=== PATIENT | female | born 1975 | race African-American/Black ===

== ENCOUNTER 2017-05-12 10:39 | Outpatient (CLI) | payer MEDICARE, MEDICAID ==
[2017-05-12 11:37] LABS: #Basophils 0.1 thou/uL (0.0-0.2); #Eosinphils 0.2 thou/uL (0.0-0.7); #Lymphocytes 2.2 thou/uL (1.20-3.40); #Monocytes 0.4 thou/uL (0.11-0.59); #Neutrophils 2.7 thou/uL (1.40-6.50); %Basophils 1.9 % (0.0-1.0); %Eosinophils 2.9 % (0.0-10.0); %Lymphocytes 39.5 % (21.0-51.0); %Monocytes 6.3 % (0.0-10.0); %Neutrophils 49.4 % (42.0-75.0); Hemoglobin 13.1 g/dL (12.0-16.0); Mean Corpuscular HGB CONC 32.3 g/dL (32.0-36.0); Mean Corpuscular Hemoglobin 26.5 pg (27.0-31.0); Mean Corpuscular Volume 81.9 fl (81.0-99.0); Mean Platelet Volume 6.1 fL (7.4-10.4); Platelet Count 305 thou/uL (130-400); RBC Distribution Width 14.8 % (11.5-14.5); Red Blood Cell (RBC) Count 4.94 mill/uL (4.20-5.40); White Blood Cell (WBC) Count 5.5 thou/uL (4.8-10.8)
[2017-05-12 11:41] LABS: ALT (SGPT) 14 U/L (8-55); AST (SGOT) 16 U/L (5-34); Alkaline Phosphatase 99 U/L (40-150); Anion Gap 13 mmol/L (10-20); BUN (Urea Nitrogen) 13 mg/dL (7.0-18.7); Bilirubin, Total 0.4 mg/dL (0.2-1.2); Calc. Creatinine Clearance 0 mL/min (70-130); Carbon Dioxide 26 mmol/L (22-29); Chloride 104 mmol/L (98-107); Cholesterol 182 mg/dl (< 200 Desired); Estimated GFR-MDRD 70; Globulin 2.7 g/dL (2.4-3.5); Glucose 92 mg/dL (70-105); HDL Cholesterol 45 mg/dL (>60 Neg Risk); LDL Cholesterol, Calculated 127 mg/dL; Potassium 4.9 mmol/L (3.5-5.1); Protein, Total 6.7 g/dL (6.0-8.3); Sodium 138 mmol/L (136-145); Triglycerides 52 mg/dL (Less than 150)
[2017-05-12 11:51] LABS: Hemoglobin A1c 5.6 % (4.0-6.0)
[2017-05-12 11:56] LABS: Thyroid Stimulating Hormone 2.1567 uIU/mL (0.35-4.94)
[2017-05-12 12:44] LABS: Free T4 (Free Thyroxine) 0.78 ng/dL (0.70-1.48)
== END 2017-05-12 10:40 | disposition home or self-care (01) ==
LOC: HPCALD 10:39
PROVIDERS: ATTEND Family Medicine
DX: E78.5 Hyperlipidemia, unspecified (principal); E11.9 Type 2 diabetes mellitus without complications; E03.9 Hypothyroidism, unspecified
CPT/HCPCS: 36415; 80053; 80061; 83036; 84439; 84443; 85025

== ENCOUNTER 2018-03-19 08:17 | Outpatient (CLI) | payer MEDICARE, MEDICAID ==
--- NOTE | 2018-03-19 10:10 | CT ---
CT BRAIN WITHOUT CONTRAST: Comparison: None. History: Persistent headaches. Patient had a seizure one month ago and fell and hit the back of her h ead. Technique: Multiple contiguous axial images were obtained in a CT of the brain without contrast. FINDINGS: The brain is normal in morphology and attenuation without focal lesions or confluent areas of infarct ion. There is no evidence of hydrocephalus, intracranial hemorrhage, or extraaxial fluid collection. The calvarium and overlying soft tissues are unremarkable. The visualized paranasal sinuses and masto id air cells are well aerated. IMPRESSION: No evidence of acute intracranial abnormality. POS: [facility]
== END 2018-03-19 08:18 | disposition home or self-care (01) ==
LOC: BURCT 08:17
PROVIDERS: ATTEND Family Medicine
DX: R51 Headache (principal)
CPT/HCPCS: 70450

== ENCOUNTER 2018-04-18 14:07 | Emergency (ER) | payer MEDICARE, MEDICAID | END 2018-04-18 15:38 | disposition left against medical advice (07) | LOC: BURERS 14:07 | DX: M54.5 Low back pain (principal); M25.561 Pain in right knee; M25.562 Pain in left knee; M19.90 Unspecified osteoarthritis, unspecified site; E11.40 Type 2 diabetes mellitus with diabetic neuropathy, unspecified; F41.9 Anxiety disorder, unspecified; F32.9 Major depressive disorder, single episode, unspecified; F17.210 Nicotine dependence, cigarettes, uncomplicated; Z79.899 Other long term (current) drug therapy | CPT/HCPCS: 99283 ==

== ENCOUNTER 2019-09-04 08:54 | Emergency (ER) | payer MEDICARE, MEDICAID ==
--- NOTE | 2019-09-04 10:22 | RAD ---
LEFT ELBOW 4 VIEWS: DATE: 09/04/2019. FINDINGS: Some soft tissue swelling is evident, but no underlying fractures were seen. There is no joint effus ion. There is probably some bony spurring on the coronoid process of the ulna. IMPRESSION: Soft tissue swelling but no acute bony findings. POS: [facility]
--- NOTE | 2019-09-04 10:25 | RAD ---
RIGHT HAND 3 VIEWS: DATE: 09/04/2019. FINDINGS: There is a nondisplaced fracture of the distal phalanx of the fifth finger. The DIP joint is not inv olved. The remainder of the hand and wrist appear intact. IMPRESSION: Fracture of the distal phalanx of the fifth digit. POS: [facility]
== END 2019-09-04 10:25 | disposition home or self-care (01) ==
LOC: BURERS 08:54
DX: S62.666A Nondisplaced fracture of distal phalanx of right little finger, initial encounter for closed fracture (principal); S50.02XA Contusion of left elbow, initial encounter; M19.90 Unspecified osteoarthritis, unspecified site; E11.40 Type 2 diabetes mellitus with diabetic neuropathy, unspecified; E78.00 Pure hypercholesterolemia, unspecified; F43.10 Post-traumatic stress disorder, unspecified; F41.9 Anxiety disorder, unspecified; F32.9 Major depressive disorder, single episode, unspecified; F17.210 Nicotine dependence, cigarettes, uncomplicated; Z79.899 Other long term (current) drug therapy; W22.8XXA Striking against or struck by other objects, initial encounter

== ENCOUNTER 2020-07-19 15:25 | Emergency (ER) | payer MEDICARE, MEDICAID | END 2020-07-19 16:04 | LOC: BURERS 15:25 | DX: M54.5 Low back pain (principal); M19.90 Unspecified osteoarthritis, unspecified site; E11.40 Type 2 diabetes mellitus with diabetic neuropathy, unspecified; E78.00 Pure hypercholesterolemia, unspecified; F32.9 Major depressive disorder, single episode, unspecified; F41.9 Anxiety disorder, unspecified; F43.10 Post-traumatic stress disorder, unspecified; F17.210 Nicotine dependence, cigarettes, uncomplicated; M54.6 Pain in thoracic spine | CPT/HCPCS: 99406 ==

== ENCOUNTER 2022-05-30 10:52 | Emergency (ER) | payer OTHER ==
[2022-05-30 11:40] LABS: Hemoglobin 13.3 g/dL (12.0-16.0); Mean Corpuscular HGB CONC 33.1 g/dL (32.0-36.0); Mean Corpuscular Hemoglobin 27.6 pg (27.0-31.0); Mean Corpuscular Volume 83.6 fL (78.0-98.0); Mean Platelet Volume 5.8 fL (7.4-10.4); Platelet Count 386 thou/uL (130-400); RBC Distribution Width 14.4 % (11.5-14.5); Red Blood Cell (RBC) Count 4.82 mill/uL (4.20-5.40)
[2022-05-30 11:50] LABS: ALT (SGPT) 10 U/L (8-55); AST (SGOT) 14 U/L (5-34); Alkaline Phosphatase 91 U/L (40-110); Anion Gap 12 mmol/L (10-20); BUN (Urea Nitrogen) 8 mg/dL (7.0-18.7); Bilirubin, Total 0.4 mg/dL (0.2-1.2); Calc. Creatinine Clearance 0 mL/min (70-130); Calcium 9.2 mg/dL (7.8-10.44); Carbon Dioxide 31 mmol/L (22-29); Chloride 102 mmol/L (98-107); Estimated GFR 78; Globulin 2.8 g/dL (2.4-3.5); Glucose 102 mg/dL (70-105); Potassium 4.2 mmol/L (3.5-5.1); Protein, Total 6.8 g/dL (6.0-8.3); Sodium 141 mmol/L (136-145)
[2022-05-30 12:02] LABS: Lymphocytes 25 % (21-51); MDiff Complete? YES; Monocytes 3 % (0-10); Neutrophil 72 % (42-75); Platelet Morphology Comment Appears Adequate; RBC Morphology Normal
== END 2022-05-30 12:53 | disposition home or self-care (01) ==
LOC: BURERS 10:52
DX: Z00.00 Encounter for general adult medical examination without abnormal findings (principal); R68.89 Other general symptoms and signs; E03.9 Hypothyroidism, unspecified; E11.9 Type 2 diabetes mellitus without complications; M19.90 Unspecified osteoarthritis, unspecified site; E78.00 Pure hypercholesterolemia, unspecified; G62.9 Polyneuropathy, unspecified; G90.50 Complex regional pain syndrome I, unspecified; F17.210 Nicotine dependence, cigarettes, uncomplicated
CPT/HCPCS: 36415; 80053; 85025; 99283

== ENCOUNTER 2022-07-08 11:57 | Emergency (ER) | payer OTHER ==
[2022-07-08] MEDS ORDERED: Morphine 4 MG/ML VIAL ONE (13:15)
[2022-07-08] MEDS ORDERED: Morphine 2 MG/ML VIAL ONE (13:16)
[2022-07-08 13:28] LABS: ALT (SGPT) 15 U/L (8-55); AST (SGOT) 25 U/L (5-34); Albumin 4.6 g/dL (3.5-5.0); Alkaline Phosphatase 115 U/L (40-110); Anion Gap 18 mmol/L (10-20); BUN (Urea Nitrogen) 7 mg/dL (7.0-18.7); Bilirubin, Total 1.1 mg/dL (0.2-1.2); Calc. Creatinine Clearance 0 mL/min (70-130); Carbon Dioxide 24 mmol/L (22-29); Chloride 100 mmol/L (98-107); Estimated GFR 59; Globulin 3.4 g/dL (2.4-3.5); Glucose 112 mg/dL (70-105); Hemoglobin 14.9 g/dL (12.0-16.0); Mean Corpuscular HGB CONC 30.8 g/dL (32.0-36.0); Mean Corpuscular Hemoglobin 27.2 pg (27.0-31.0); Mean Corpuscular Volume 88.3 fL (78.0-98.0); Mean Platelet Volume 7.1 fL (7.4-10.4); Platelet Count 404 thou/uL (130-400); Potassium 3.6 mmol/L (3.5-5.1); Red Blood Cell (RBC) Count 5.47 mill/uL (4.20-5.40); Sodium 138 mmol/L (136-145); White Blood Cell (WBC) Count 7.4 thou/uL (4.8-10.8)
[2022-07-08 14:00] LABS: Eosinophils 2 % (0-10); Lymphocytes 34 % (21-51); MDiff Complete? YES; Monocytes 8 % (0-10); Neutrophil 56 % (42-75); Platelet Morphology Comment Appears Adequate; RBC Morphology Normal
[2022-07-08] MEDS ORDERED: Boostrix 0.5 ML (Tdap) VIAL (>/=7 yrs of age) ONE (14:32)
[2022-07-08] MEDS ORDERED: HYDROcodone/Acetaminophen 5/325 mg Tablet ONE (14:32)
== END 2022-07-08 14:41 | disposition home or self-care (01) ==
LOC: BURERS 11:57
DX: S21.112A Laceration without foreign body of left front wall of thorax without penetration into thoracic cavity, initial encounter (principal); S00.03XA Contusion of scalp, initial encounter; S60.211A Contusion of right wrist, initial encounter; E11.40 Type 2 diabetes mellitus with diabetic neuropathy, unspecified; E03.9 Hypothyroidism, unspecified; M19.90 Unspecified osteoarthritis, unspecified site; E78.00 Pure hypercholesterolemia, unspecified; F17.210 Nicotine dependence, cigarettes, uncomplicated; Y04.2XXA Assault by strike against or bumped into by another person, initial encounter; Z23 Encounter for immunization
CPT/HCPCS: 71045; 73110; 80053; 84484; 85025; 90471; 90715; 93005; 96374; 99283; J2270

== ENCOUNTER 2022-12-06 19:53 | Emergency (ER) | payer MEDICARE, OTHER | END 2022-12-06 20:10 | LOC: BURERS 19:53 | DX: F43.0 Acute stress reaction (principal); E03.9 Hypothyroidism, unspecified; E11.9 Type 2 diabetes mellitus without complications; E78.00 Pure hypercholesterolemia, unspecified; F17.210 Nicotine dependence, cigarettes, uncomplicated | CPT/HCPCS: 99283 ==

== ENCOUNTER 2022-12-23 11:05 | Emergency (ER) | payer MEDICARE, OTHER ==
[2022-12-23] MEDS ORDERED: Dexamethasone 10 MG/ML VIAL ONE (11:57)
[2022-12-23] MEDS ORDERED: Ketorolac Tromethamine 60 MG/2 ML VIAL ONE (11:57)
== END 2022-12-23 13:28 | disposition home or self-care (01) ==
LOC: BURERS 11:05
DX: G90.511 Complex regional pain syndrome I of right upper limb (principal); E03.9 Hypothyroidism, unspecified; M19.90 Unspecified osteoarthritis, unspecified site; E11.40 Type 2 diabetes mellitus with diabetic neuropathy, unspecified; E78.00 Pure hypercholesterolemia, unspecified; F17.210 Nicotine dependence, cigarettes, uncomplicated; Z79.899 Other long term (current) drug therapy
CPT/HCPCS: 72040; 96372; J1100; J1885

== ENCOUNTER 2023-10-25 12:39 | Emergency (ER) | payer MEDICARE, OTHER | END 2023-10-25 13:18 | disposition home or self-care (01) | LOC: BURERS 12:39 | DX: G90.50 Complex regional pain syndrome I, unspecified (principal); E11.40 Type 2 diabetes mellitus with diabetic neuropathy, unspecified; F17.210 Nicotine dependence, cigarettes, uncomplicated | CPT/HCPCS: 99283 ==

== ENCOUNTER 2025-03-22 08:00 | Outpatient (CLI) | payer OTHER | END 2025-03-22 08:01 | disposition home or self-care (01) | LOC: BURPT 08:00 | PROVIDERS: ATTEND Family Medicine | DX: R26.89 Other abnormalities of gait and mobility (principal); R53.1 Weakness ==